=== PATIENT | male | born 2000 | race Caucasian/White ===

== ENCOUNTER → 2024-05-23 | Outpatient (CLI) | payer OTHER, BC, SELFPAY ==
[2024-05-23 10:41] LABS: Basophils % (Auto) 1 % (0-2.5); Eosinophils # (Auto) 0.1 Thou/mm3 (0.0-0.5); Eosinophils % (Auto) 2 % (0-10); Hematocrit 42.3 % (41.0-53.0); Hemoglobin 14.2 g/dL (13.5-16.0); Immature Granulocytes % (Auto) 0 % (0-0); Lymphocytes # (Auto) 1.7 Thou/mm3 (1.0-4.8); Lymphocytes % (Auto) 36 % (10-50); Mean Corpuscular HGB Conc 33.6 g/dl (31.0-37.0); Mean Corpuscular Hemoglobin 28.6 pg (25.0-35.0); Mean Corpuscular Volume 85 fL (80-100); Monocytes # (Auto) 0.4 Thou/mm3 (0.0-0.8); Monocytes % (Auto) 9 % (0-12); Neutrophils # (Auto) 2.5 Thou/mm3 (1.8-7.7); Neutrophils % (Auto) 53 % (37-80); Nucleated Red Blood Cell % 0 /100 WBC (0); Platelet Count 327 Thou/mm3 (140-440); RDW Standard Deviation 38.4 fL (35.1-43.9); Red Blood Count 4.96 Miln/mm3 (4.50-5.90); White Blood Count 4.8 Thou/mm3 (3.8-10.6)
[2024-05-23 11:04] LABS: Collection Type, Urine Clean Catch; Squamous Epithelial Cell,Urine 0 /hpf (0-5)
[2024-05-23 11:25] LABS: Bilirubin,Urine Negative (Negative); Blood,Urine Negative (Negative); Clarity,Urine Clear (Clear/Hazy); Color,Urine Lt-Yellow (Lt Yel-Yel); Culture Indicated,Urine Not Indicated; Glucose, Urine Negative (Negative); Ketones,Urine Negative (Negative); Leukocyte Esterase,Urine Negative (Negative); Nitrite,Urine Negative (Negative); Protein,Urine Negative (Neg - Trace); RBC,Urine < 1 /hpf (0-3); Specific Gravity,Urine 1.023 (1.001-1.035); Urobilinogen,Urine Negative mg/dL (0.0-1.0); WBC,Urine < 1 /hpf (0-5)
[2024-05-23 11:39] LABS: Alanine Aminotransferase 19 U/L (10-49); Albumin, Serum 4.6 gm/dL (3.5-5.0); Albumin/Globulin Ratio 1.5 (1.2-2.2); Alkaline Phosphatase 87 U/L (46-116); Anion Gap 11 (7-16); Aspartate Amino Transferase 22 U/L (0-34); BUN/Creatinine Ratio 24 Ratio (12-20); Bilirubin,Total 0.7 mg/dL (0.3-1.2); Blood Urea Nitrogen 19 mg/dL (9-23); Calcium 9.4 mg/dL (8.3-10.6); Calcium (Corrected) 9.4 mg/dL (8.5-10.1); Carbon Dioxide 24.2 mMol/L (20.0-31.0); Cardiac Risk Estimate 2.4 RATIO (4.0-6.7); Chloride 103 mMol/L (98-107); Cholesterol 129 mg/dL (132-200); Creatinine (Component) 0.8 mg/dL (0.6-1.3); Globulin 3.1 gm/dL (2.3-3.5); Glucose 97 mg/dL (74-106); HDL Cholesterol 53 mg/dL (40-60); LDL Cholesterol,Calculated 67 mg/dL (0-130); Osmolality,Calculated 277 (275-295); Potassium 4.2 mMol/L (3.4-5.1); Sodium 138 mMol/L (136-145); Thyroid Stimulating Hormone 1.16 uIU/mL (0.55-4.78); Total Protein 7.7 gm/dL (5.7-8.2); Triglycerides 46 mg/dL (30-150); eGFR > 60 See Note
== END | disposition home or self-care (01) ==
PROVIDERS: PCP Family Medicine; Referring Provider Nurse Practitioner Family; Visit Provider Nurse Practitioner Family
DX: Z00.00 Encounter for general adult medical examination without abnormal findings (principal)
CPT/HCPCS: 36415; 80053; 80061; 81001; 84443; 85025

== ENCOUNTER → 2024-05-24 | Outpatient (BNVA) | payer OTHER, BC, SELFPAY | END | disposition home or self-care (01) | PROVIDERS: PCP Family Medicine; Referring Provider Family Medicine; Visit Provider Urology | DX: N40.1 Benign prostatic hyperplasia with lower urinary tract symptoms (principal); N13.8 Other obstructive and reflux uropathy; R39.14 Feeling of incomplete bladder emptying | CPT/HCPCS: 81003; 99212; G0463 ==

== ENCOUNTER 2024-06-01 09:20 | Day surgery (SDC) | payer OTHER, BC, SELFPAY ==
[2024-05-31 12:24] VITALS: BMI 20.9
[2024-06-01] VITALS (9 sets, daily range): BP systolic 101–132; BP diastolic 59–77; PULSE 64–93; RESP 12–18; TEMP 36.6–36.9; O2SAT 99–100; BMI 22.6
--- NOTE | 2024-06-01 11:25 | SUR.PHASEI ---
[id number] Patient arrived to recovery in [facility], awake and talking with staff, breathing unlabored, vital signs stable, patient endorsed discomfort from the catheter, anesthesia provider medicated patient at bedside, will monitor patients pain, report received from Dr. Mobley and Michael RN/ Jovana YOON
--- NOTE | 2024-06-01 11:36 | ESOP_ITS ---
Date of Procedure 06/01/24 Pre Op Diagnosis Urinary obstruction, BPH, on tamsulosin 0.4 mg p.o. daily Post Op Diagnosis Same plus stricture of fossa navicularis, bladder ulcers biopsies obtained video is obtained rule out interstitial cystitis Procedure Urethral dilation cystoscopic examination biopsy and fulguration of bladder lesion Findings Stricture fossa navicularis, bladder ulcers rule out interstitial cystitis Procedure Description Indications for procedure this is a 24-year-old male is seen in urology office he has obstructive urinary symptom he is on tamsulosin 0.4 mg p.o. daily uroflow bladder scan has revealed obstructive pattern he was recommended above procedure procedure and complications were discussed with the patient in great detail informed consent is obtained Procedure patient was brought to the operating room in a satisfactory condition after appropriate premedication he was appropriately identified by surgeon and operating room staff next general anesthesia was given uneventfully after patient was positioned in a spine position on the operating table next patient was positioned in a dorsal lithotomy position parts were prepped and draped in usual sterile fashion 2% lidocaine was instilled into the urethra patient received 160 mg of gentamicin IV piggyback 21 cystoscope was used to do the cystourethroscopy he had stricture of fossa navicularis dilation with male urethral sounds up to 24 Icelandic was carried out next scope was introduced into the bladder per urethra prostate revealed bilobar prostatic hypertrophy it was not completely obstructive. Inside of the bladder in all the quadrant was carried out there was no tumor stone or diverticula identified he had satellite hemorrhages I filled bladder with 350 cc of water drained cystoscope was done again there were multiple bladder ulcers fulguration was carried out a biopsy was obtained and fulguration was done at the end of the procedure no active bleeding was seen instrument was withdrawn gently #16 Ramsey catheter was inserted balloon was inflated with 10 cc of water patient after having tolerated the procedure well was sent to the recovery room in a satisfactory condition to be discharged home to be followed in urology office Anesthesia GETA Pathology / specimen Other (Bladder biopsy) Estimated Blood Loss 0.5 Condition Stable Disposition PACU Surgeon José Manuel Oviedo MD Surgical Staff Operation Date: 06/01/24 11:45 Case Staff Anesthesiologist: Lloyd Mobley
[2024-06-01] MEDS: fentaNYL CIT INJ 50 mCg/ML AMP 2ML IV (11:53)
[2024-06-01] MEDS: ACETAMINOPHEN 325 MG TABLET 650 MG PO (11:55)
--- NOTE | 2024-06-01 12:30 | SUR.PHASEII ---
1230 Report given to Umm Starr RN
--- NOTE | 2024-06-01 13:00 | SUR.PHASEII ---
1230: pt sitting up in bed eating ice chips without difficulty swallowing or n/v, breathing unlabored, 16F perry catheter in place and patent, report from Umm Conn RN 1300: pt awake, alert, discharge instructions given with both mother and father present using teach back method-all questions answered, pt and family verbalize understanding of discharge instructions, 16F perry catheter in place and patent, pt able to dress self and ambulate to wheelchair with steady gait, pt discharged via wheelchair with all belongings and copies of discharge paperwork.
== END 2024-06-01 13:00 | disposition home or self-care (01) ==
PROVIDERS: PCP Family Medicine; Referring Provider Urology; Visit Provider Urology
PROC: 0T7B8ZZ Dilation of Bladder, Via Natural or Artificial Opening Endoscopic (ICD-10-PCS; CPT 52204; principal; 2024-06-01 11:30)
DX: N32.9 Bladder disorder, unspecified (principal); N40.1 Benign prostatic hyperplasia with lower urinary tract symptoms; N13.8 Other obstructive and reflux uropathy
CPT/HCPCS: 52204; 52214; A4217; A4649; J1100; J1580; J2704; J3010; J3490; A9270

== ENCOUNTER → 2024-06-17 | Outpatient (BNVA) | payer OTHER, BC, SELFPAY | END | disposition home or self-care (01) | PROVIDERS: PCP Family Medicine; Referring Provider Family Medicine; Visit Provider Urology | DX: N99.115 Postprocedural fossa navicularis urethral stricture (principal); N41.1 Chronic prostatitis; N40.0 Benign prostatic hyperplasia without lower urinary tract symptoms | CPT/HCPCS: 81003; 99212; G0463 ==

== ENCOUNTER 2025-01-28 23:34 | Emergency (ER) | payer OTHER, BC, SELFPAY ==
[2025-01-28 23:37] VITALS: BMI 47.8
[2025-01-29] VITALS: BP 121/70; PULSE 94; RESP 18; TEMP 37; O2SAT 95
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
[2025-01-29] MEDS: ONDANSETRON INJ 2 MG/ML INJ 2 ML 4 MG IM (01:07)
[2025-01-29] MEDS: ACETAMINOPHEN 500 MG TABLET 1000 MG PO (01:30)
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
== END 2025-01-29 01:51 | disposition home or self-care (01) ==
LOC: SERX 01-29 01:27
PROVIDERS: Emergency Provider Emergency Medicine; PCP Family Medicine
DX: S01.112A Laceration without foreign body of left eyelid and periocular area, initial encounter (principal); S05.12XA Contusion of eyeball and orbital tissues, left eye, initial encounter; Y04.0XXA Assault by unarmed brawl or fight, initial encounter
CPT/HCPCS: 12013; 70450; 70486; 96372; 99283; J2405; A9270